=== PATIENT | female | born 1965 | race Caucasian/White ===

== ENCOUNTER 2018-01-16 07:45 | Day surgery (SDC) | payer BC ==
[~2018-01-16] VITALS: Ht 160 cm; Wt 47.6 kg
[~2018-01-16 07:45] MED LIST: MELO-108 PO; MULT-1192 PO; SODIUM CHLORIDE 0.9% 1000ML 1,000 ML IV ONE; TYL3 PO
[2018-01-16 08:59] VITALS: BP 144/73
[2018-01-16 10:40] VITALS: BP 138/56
[2018-01-16 10:48] VITALS: BP 144/61
[2018-01-16 10:53] VITALS: BP 153/71
== END 2018-01-16 11:23 | disposition home or self-care (01) ==
LOC: ENDO 07:45 → DAH 07:45 → ENDO 11:23
PROVIDERS: ATTEND Internal Medicine
DX: K86.1 Other chronic pancreatitis (principal); K80.20 Calculus of gallbladder without cholecystitis without obstruction; K31.89 Other diseases of stomach and duodenum; R59.0 Localized enlarged lymph nodes; K21.9 Gastro-esophageal reflux disease without esophagitis; I10 Essential (primary) hypertension; K59.00 Constipation, unspecified; F10.10 Alcohol abuse, uncomplicated; K85.90 Acute pancreatitis without necrosis or infection, unspecified; K76.0 Fatty (change of) liver, not elsewhere classified; Z79.899 Other long term (current) drug therapy; Z90.49 Acquired absence of other specified parts of digestive tract; Z98.890 Other specified postprocedural states; Z90.89 Acquired absence of other organs
CPT/HCPCS: 43237; A4606; J7030; 43231

== ENCOUNTER 2018-02-03 21:11 | Inpatient (IN) | payer BC ==
[~2018-02-03] VITALS: Ht 162.6 cm; Wt 46.7 kg
[~2018-02-03 21:11] MED LIST changes: -SODIUM CHLORIDE 0.9% 1000ML 1,000 ML IV ONE
[2018-02-03 21:58] LABS: BASOPHILS % (AUTO) 0.8 % (0.0-5.0); EOSINOPHILS % (AUTO) 1.5 % (0.0-8.0); HEMATOCRIT 34.4 % (36-48); LYMPHOCYTES % (AUTO) 21.6 % (21.0-51.0); MEAN CORPUSCULAR HEMOGLOBIN 31.4 pg (27.0-33.0); MEAN CORPUSCULAR HGB CONC 34.1 g/dL (32.0-36.0); MEAN CORPUSCULAR VOLUME 91.9 fL (79-99); MONOCYTES % (AUTO) 6.7 % (3.0-13.0); NEUTROPHILS % (AUTO) 69.4 % (40.0-77.0); PLATELET COUNT (AUTO) 353 K/uL (130-400); RED BLOOD CELL COUNT(AUTO) 3.75 MIL/uL (4.00-5.50); WHITE BLOOD COUNT (AUTO) 12.6 K/uL (4.8-10.8)
[2018-02-03 22:01] LABS: APPEARANCE,URINE CLEAR (CLEAR); BILIRUBIN,URINE MODERATE (NEGATIVE); COLOR,URINE YELLOW (YELLOW); GLUCOSE, URINE (UA) NEGATIVE (NEGATIVE); KETONES,URINE 5 mg/dL (NEGATIVE); LEUKOCYTE ESTERASE ,URINE NEGATIVE (NEGATIVE); NITRATE,URINE NEGATIVE (NEGATIVE); OCCULT BLOOD,URINE MODERATE (NEGATIVE); PROTEIN,URINE >=300 (NEGATIVE)
[2018-02-03 22:05] LABS: AMPHET/METH SCREEN,URINE NEGATIVE (NEGATIVE); BARBITURATE SCREEN, URINE NEGATIVE (NEGATIVE); BENZODIAZEPINES SCREEN,URINE NEGATIVE (NEGATIVE); CANNABINOID SCREEN,URINE NEGATIVE (NEGATIVE); COCAINE SCREEN,URINE NEGATIVE (NEGATIVE); OPIATE SCREEN,URINE NEGATIVE (NEGATIVE); PHENCYCLIDINE SCREEN,URINE NEGATIVE (NEGATIVE)
[2018-02-03 22:10] LABS: CREATININE 0.6 mg/dL (0.5-1.5); POTASSIUM 3.2 mmol/L (3.5-5.1)
[2018-02-03 22:14] LABS: ALBUMIN 3.2 g/dL (3.5-5.0); BILIRUBIN,TOTAL 0.5 mg/dL (0.2-1.0); TOTAL PROTEIN, SERUM 6.5 g/dL (6.0-8.3)
[2018-02-03 22:18] LABS: BACTERIA,URINE Few /HPF (None Seen); MUCUS,URINE Few LPF (None Seen)
[2018-02-03 22:19] LABS: HYALINE CASTS, URINE 0-1 /LPF (0-1 /LPF)
[2018-02-03] MEDS ORDERED: ONDANSETRON HCL 4 MG/2 ML VIAL ONE (22:32)
[2018-02-03] MEDS ORDERED: MORPHINE SULFATE 8 MG/ML VIAL ONE ×2 (22:32→23:56)
[2018-02-04] VITALS (7 sets, daily range): BP systolic 139–167; BP diastolic 75–94
[2018-02-04] MEDS ORDERED: MORPHINE SULFATE 2 MG/ML 1ML SYG IV PRN (00:15)
[2018-02-04] MEDS ORDERED: MORPHINE SULFATE 4 MG/1ML SYG IV PRN (00:15)
[2018-02-04] MEDS ORDERED: LIDOCAINE HCL-MPF 1% 2ML VIAL IVP PRN (00:15)
[2018-02-04] MEDS ORDERED: MAGNESIUM 2GM PREMIX 50ML 50 ML IV PRN (00:15)
[2018-02-04] MEDS ORDERED: ACETAMINOPHEN 325 MG TAB PO PRN (00:15)
[2018-02-04] MEDS ORDERED: ONDANSETRON HCL MDV 20ML 2 MG/ML VIAL IV PRN (00:15)
[2018-02-04] MEDS ORDERED: NICOTINE 21 MG/ 24 HR PATCH TD ONE (01:31)
[2018-02-04] MEDS: LACTATED RINGERS 1000ML 1,000 ML IV SCH (01:57)
[2018-02-04] MEDS: POTASSIUM CHLORIDE 20MEQ/100ML 100 ML IV PRN ×2 (01:59→02:19)
[2018-02-04] MEDS: DiphenhydrAMINE HCL 50 MG/ML VIAL IV SCH ×2 (03:15→19:10)
[2018-02-04] MEDS ORDERED: DiphenhydrAMINE HCL 50 MG/ML VIAL ONE (03:19)
[2018-02-04] MEDS ORDERED: CHLORDIAZEPOXIDE HCL 25 MG CAP PO PRN ×2 (04:30)
[2018-02-04 05:29] LABS: HEMATOCRIT 34.6 % (36-48); MEAN CORPUSCULAR HEMOGLOBIN 30.6 pg (27.0-33.0); MEAN CORPUSCULAR HGB CONC 32.9 g/dL (32.0-36.0); MEAN CORPUSCULAR VOLUME 93.1 fL (79-99); NUCLEATED RED BLOOD CELLS 0.1 % (0.0-0.19); PLATELET COUNT (AUTO) 300 K/uL (130-400); RED BLOOD CELL COUNT(AUTO) 3.72 MIL/uL (4.00-5.50); RED CELL DISTRIBUTION WIDTH 14.2 % (11.0-15.5); WHITE BLOOD COUNT (AUTO) 11.1 K/uL (4.8-10.8)
[2018-02-04 05:47] LABS: ALBUMIN 2.8 g/dL (3.5-5.0); BILIRUBIN,TOTAL 0.4 mg/dL (0.2-1.0); CREATININE 0.5 mg/dL (0.5-1.5); MAGNESIUM 2.1 mg/dL (1.80-2.40); POTASSIUM 3.4 mmol/L (3.5-5.1); TOTAL PROTEIN, SERUM 5.8 g/dL (6.0-8.3)
[2018-02-04] MEDS: FOLIC ACID/VITAMIN B COMP W-C 1 MG CAPSULE PO SCH ×2 (08:42→09:00)
[2018-02-04] MEDS: FAMOTIDINE/PF 20 MG/2 ML VIAL IV SCH ×2 (08:42→20:06)
[2018-02-04] MEDS: ENOXAPARIN SODIUM 30 MG/0.3 ML SQ SCH (08:43)
[2018-02-04] MEDS: NICOTINE 21 MG/ 24 HR PATCH TD SCH (08:44)
[2018-02-04] MEDS ORDERED: MORPHINE SULFATE 5 MG/ML VIAL ONE (08:52)
[2018-02-04] MEDS ORDERED: NICOTINE 21 MG/ 24 HR PATCH TD SCH (09:00)
[2018-02-04] MEDS: LORAZEPAM 2 MG/ML 1 ML VIAL IVP PRN (11:26)
[2018-02-05] MEDS: LORAZEPAM 2 MG/ML 1 ML VIAL IVP PRN ×4 (01:40→20:13)
[2018-02-05 04:00] VITALS: BP 170/89
[2018-02-05 06:10] LABS: BASOPHILS % (AUTO) 0.6 % (0.0-5.0); EOSINOPHILS % (AUTO) 3.4 % (0.0-8.0); HEMATOCRIT 32.6 % (36-48); MEAN CORPUSCULAR HGB CONC 34.5 g/dL (32.0-36.0); MEAN CORPUSCULAR VOLUME 92.9 fL (79-99); MONOCYTES % (AUTO) 7.4 % (3.0-13.0); NEUTROPHILS % (AUTO) 65.6 % (40.0-77.0); PLATELET COUNT (AUTO) 327 K/uL (130-400); RED CELL DISTRIBUTION WIDTH 13.9 % (11.0-15.5)
[2018-02-05 06:23] LABS: ALBUMIN 2.4 g/dL (3.5-5.0); BILIRUBIN,DIRECT 0.1 mg/dL (0.0-0.3); BILIRUBIN,TOTAL 0.4 mg/dL (0.2-1.0); CREATININE 0.6 mg/dL (0.5-1.5); POTASSIUM 3.7 mmol/L (3.5-5.1); TOTAL PROTEIN, SERUM 5.4 g/dL (6.0-8.3)
[2018-02-05 07:51] VITALS: BP 115/55
[2018-02-05] MEDS: FOLIC ACID/VITAMIN B COMP W-C 1 MG CAPSULE PO SCH (08:26)
[2018-02-05] MEDS: FAMOTIDINE/PF 20 MG/2 ML VIAL IV SCH ×2 (08:26→20:12)
[2018-02-05] MEDS: ENOXAPARIN SODIUM 30 MG/0.3 ML SQ SCH (08:27)
[2018-02-05] MEDS: NICOTINE 21 MG/ 24 HR PATCH TD SCH ×2 (08:27→09:00)
[2018-02-05 11:00] VITALS: BP 180/87
[2018-02-05] MEDS: LACTATED RINGERS 1000ML 1,000 ML IV SCH ×2 (11:24→21:59)
[2018-02-05 16:00] VITALS: BP 193/95
[2018-02-05] MEDS ORDERED: OMEP20CA10 PO (16:04)
[2018-02-05] MEDS ORDERED: BISA5TAB12 PO (16:04)
[2018-02-05] MEDS ORDERED: MELA1TAB17 PO (16:04)
[2018-02-05] MEDS ORDERED: 5-HY100C3 PO (16:04)
[2018-02-05] MEDS ORDERED: DOXY25TA49 PO (16:04)
[2018-02-05] MEDS ORDERED: DULO60CA63 PO (16:04)
[2018-02-05] MEDS ORDERED: METOPROLOL TARTRATE 1 MG/ML 5ML VIAL IV PRN (16:15)
[2018-02-05] MEDS: AMLODIPINE BESYLATE 5 MG TAB PO SCH (17:26)
[2018-02-05 19:30] VITALS: BP 171/93
[2018-02-05 23:20] VITALS: BP 175/92
[2018-02-05] MEDS ORDERED: HYDRALAZINE HCL 20 MG/ML VIAL IV PRN (23:30)
[2018-02-06] MEDS: DiphenhydrAMINE HCL 50 MG/ML VIAL IV SCH (03:15)
[2018-02-06 03:40] VITALS: BP 164/94
[2018-02-06] MEDS ORDERED: MORPHINE SULFATE 8 MG/ML VIAL ONE (04:19)
[2018-02-06 04:35] LABS: BASOPHILS % (AUTO) 0.9 % (0.0-5.0); EOSINOPHILS % (AUTO) 4.5 % (0.0-8.0); HEMATOCRIT 36.1 % (36-48); LYMPHOCYTES % (AUTO) 32.5 % (21.0-51.0); MEAN CORPUSCULAR HEMOGLOBIN 31.2 pg (27.0-33.0); MEAN CORPUSCULAR HGB CONC 33.7 g/dL (32.0-36.0); MEAN CORPUSCULAR VOLUME 92.7 fL (79-99); MONOCYTES % (AUTO) 9.9 % (3.0-13.0); NEUTROPHILS % (AUTO) 52.2 % (40.0-77.0); NUCLEATED RED BLOOD CELLS 0.1 % (0.0-0.19); PLATELET COUNT (AUTO) 307 K/uL (130-400); WHITE BLOOD COUNT (AUTO) 8.8 K/uL (4.8-10.8)
[2018-02-06 04:40] LABS: CREATININE 0.6 mg/dL (0.5-1.5); POTASSIUM 3.3 mmol/L (3.5-5.1)
[2018-02-06] MEDS: LACTATED RINGERS 1000ML 1,000 ML IV SCH (06:09)
[2018-02-06 07:58] VITALS: BP 163/81
[2018-02-06] MEDS ORDERED: DULOXETINE HCL 30 MG CAP PO SCH (09:00)
[2018-02-06] MEDS: FOLIC ACID/VITAMIN B COMP W-C 1 MG CAPSULE PO SCH (09:36)
[2018-02-06] MEDS: AMLODIPINE BESYLATE 5 MG TAB PO SCH (09:36)
[2018-02-06] MEDS: FAMOTIDINE/PF 20 MG/2 ML VIAL IV SCH (09:36)
[2018-02-06] MEDS: NICOTINE 21 MG/ 24 HR PATCH TD SCH (09:37)
[2018-02-06] MEDS: ENOXAPARIN SODIUM 30 MG/0.3 ML SQ SCH (09:37)
[2018-02-06 11:00] VITALS: BP 156/88
== END 2018-02-06 14:43 | disposition home or self-care (01) | DRG 439 ==
LOC: EDH 21:11 → EDHIP 23:58 → 4BH 02-04 00:08
PROVIDERS: ADMIT Hospitalist; ATTEND Hospitalist
DX: K85.90 Acute pancreatitis without necrosis or infection, unspecified (principal); E44.1 Mild protein-calorie malnutrition; Z68.1 Body mass index [BMI] 19.9 or less, adult; F17.210 Nicotine dependence, cigarettes, uncomplicated; K86.0 Alcohol-induced chronic pancreatitis; F10.20 Alcohol dependence, uncomplicated; I10 Essential (primary) hypertension; E87.6 Hypokalemia; E83.42 Hypomagnesemia; K80.20 Calculus of gallbladder without cholecystitis without obstruction; Z80.1 Family history of malignant neoplasm of trachea, bronchus and lung; Z80.8 Family history of malignant neoplasm of other organs or systems; Z82.49 Family history of ischemic heart disease and other diseases of the circulatory system; Z83.3 Family history of diabetes mellitus; Z83.6 Family history of other diseases of the respiratory system
CPT/HCPCS: 36415; 76705; 80048; 80053; 80076; 80305; 81001; 82150; 82550; 83690; 83735; 84484; 85025; 85027; 93005; G0480; J0360; J1200; J1650; J2060; J2270; J2405; J3475; J3480; J3490; J7120

== ENCOUNTER 2018-05-16 17:24 | Inpatient (IN) | payer BC | END 2018-05-19 16:18 | disposition home or self-care (01) | LOC: EDH 17:24 → EDHIP 19:44 → 4CH 21:52 | DX: K85.90 Acute pancreatitis without necrosis or infection, unspecified (principal); E44.1 Mild protein-calorie malnutrition; K86.0 Alcohol-induced chronic pancreatitis; F17.210 Nicotine dependence, cigarettes, uncomplicated; F10.20 Alcohol dependence, uncomplicated ==

== ENCOUNTER 2021-08-03 12:23 | Emergency (ER) | payer BC ==
[~2021-08-03] VITALS: Ht 160 cm; Wt 45.4 kg
[~2021-08-03 12:23] MED LIST changes: +FOLI1TAB15 PO; -MELO-108 PO; -MULT-1192 PO
[2021-08-03] MEDS ORDERED: IPRATROPIUM/ALBUTEROL SULFATE 3 ML SOLUTION IH ONE (13:00)
[2021-08-03] MEDS ORDERED: ACETAMINOPHEN WITH CODEINE 1 TAB TAB PO ONE (13:00)
[2021-08-03] MEDS ORDERED: 0.9%NACL 1000ML 1,000 ML IV SCH (13:00)
[2021-08-03 13:10] LABS: BASOPHILS % (AUTO) 0.4 % (0.0-5.0); EOSINOPHILS % (AUTO) 0.4 % (0.0-8.0); HEMATOCRIT 41.1 % (36-48); LYMPHOCYTES % (AUTO) 22.4 % (21.0-51.0); MEAN CORPUSCULAR HEMOGLOBIN 34.4 pg (27.0-33.0); MEAN CORPUSCULAR HGB CONC 35.3 g/dL (32.0-36.0); MEAN CORPUSCULAR VOLUME 97.4 fL (79-99); MONOCYTES % (AUTO) 6.1 % (3.0-13.0); NEUTROPHILS % (AUTO) 70.4 % (40.0-77.0); PLATELET COUNT (AUTO) 281 K/uL (130-400); RED BLOOD CELL COUNT(AUTO) 4.22 MIL/uL (4.00-5.50); RED CELL DISTRIBUTION WIDTH 13.5 % (11.0-15.5); WHITE BLOOD COUNT (AUTO) 6.9 K/uL (4.8-10.8)
[2021-08-03 13:25] LABS: ALBUMIN 3.8 g/dL (3.5-5.0); BILIRUBIN,TOTAL 0.7 mg/dL (0.2-1.0); CREATININE 0.5 mg/dL (0.5-1.5); TOTAL PROTEIN, SERUM 6.8 g/dL (6.0-8.3)
[2021-08-03] MEDS ORDERED: ALBUTEROL 0.083% 2.5 MG/3 ML INH IH ONE (13:30)
[2021-08-03] MEDS ORDERED: AZITHROMYCIN 250 MG TABLET PO ONE (13:30)
[2021-08-03] MEDS ORDERED: NIFEDIPINE 10 MG CAP PO ONE (13:30)
[2021-08-03 13:32] LABS: APPEARANCE,URINE Clear (CLEAR); BILIRUBIN,URINE Negative (NEGATIVE); COLOR,URINE Yellow (YELLOW); GLUCOSE, URINE (UA) Negative (NEGATIVE); KETONES,URINE Trace mg/dL (NEGATIVE); LEUKOCYTE ESTERASE ,URINE Negative (NEGATIVE); NITRATE,URINE Negative (NEGATIVE); OCCULT BLOOD,URINE Small (NEGATIVE); PROTEIN,URINE 300 mg/dL (NEGATIVE); UROBILINOGEN,URINE 0.2 mg/dL (0.2-1.0)
[2021-08-03 13:37] LABS: POTASSIUM 2.4 mmol/L (3.5-5.1)
[2021-08-03] MEDS: DOXYCYCLINE HYCLATE 100 MG TABLET PO SCH ×2 (13:54→14:48)
[2021-08-03] MEDS ORDERED: ALBUTEROL 0.083% 2.5 MG/3 ML INH IH SCH (14:00)
[2021-08-03] MEDS ORDERED: POTASSIUM BICARB/CIT AC 25 MEQ TABLET.EFF PO ONE (14:00)
[2021-08-03 14:06] LABS: BACTERIA,URINE Rare /HPF (None Seen); RBC,URINE 0-1 /HPF (0-1); SQUAMOUS EPITHELIAL CELL,UR Few /HPF (0-2); WBC,URINE 0-1 /HPF (0-1)
[2021-08-03] MEDS ORDERED: MONT10TA21 PO (15:06)
[2021-08-03] MEDS ORDERED: POT1TABL PO (15:06)
[2021-08-03] MEDS ORDERED: DOXY-336 PO (15:06)
[2021-08-03] MEDS ORDERED: IPRA4AER IH (15:06)
[2021-08-03 15:13] VITALS: BP 162/81
[2021-08-03 21:04] LABS: AMPHET/METH SCREEN,URINE NEGATIVE (NEGATIVE); BARBITURATE SCREEN, URINE NEGATIVE (NEGATIVE); BENZODIAZEPINES SCREEN,URINE NEGATIVE (NEGATIVE); CANNABINOID SCREEN,URINE NEGATIVE (NEGATIVE); COCAINE SCREEN,URINE NEGATIVE (NEGATIVE); OPIATE SCREEN,URINE NEGATIVE (NEGATIVE); PHENCYCLIDINE SCREEN,URINE NEGATIVE (NEGATIVE)
== END 2021-08-03 15:15 | disposition home or self-care (01) ==
LOC: EDH 12:23
DX: J45.909 Unspecified asthma, uncomplicated (principal); E87.6 Hypokalemia; E86.0 Dehydration; F17.200 Nicotine dependence, unspecified, uncomplicated; Z20.822 Contact with and (suspected) exposure to COVID-19; I10 Essential (primary) hypertension; I25.10 Atherosclerotic heart disease of native coronary artery without angina pectoris; Z88.0 Allergy status to penicillin; Z79.899 Other long term (current) drug therapy; Z88.8 Allergy status to other drugs, medicaments and biological substances; Z98.890 Other specified postprocedural states
CPT/HCPCS: 36415; 71045; 80053; 80305; 81001; 83690; 83880; 84484; 85025; 87635; 87804 ×2; 93005; 94640 ×3; 99284; C9803; J7030; 96360

== ENCOUNTER 2022-03-21 20:32 | Inpatient (IN) | payer BC ==
[~2022-03-21] VITALS: Ht 160 cm; Wt 44.9 kg
[~2022-03-21 20:32] MED LIST changes: +DOXY-469 PO; +IPRA4AER IH; +MONT10TA21 PO; +POT1TABL PO
[2022-03-21] MEDS ORDERED: ACETAMINOPHEN 500 MG TABLET PO ONE (22:30)
[2022-03-21 23:19] LABS: BASOPHILS % (AUTO) 0.7 % (0.0-5.0); EOSINOPHILS % (AUTO) 0.8 % (0.0-8.0); HEMATOCRIT 40.2 % (36-48); LYMPHOCYTES % (AUTO) 16.6 % (21.0-51.0); MEAN CORPUSCULAR HEMOGLOBIN 33.6 pg (27.0-33.0); MEAN CORPUSCULAR HGB CONC 35.3 g/dL (32.0-36.0); NEUTROPHILS % (AUTO) 76.4 % (40.0-77.0); PLATELET COUNT (AUTO) 372 K/uL (130-400); RED BLOOD CELL COUNT(AUTO) 4.23 MIL/uL (4.00-5.50); RED CELL DISTRIBUTION WIDTH 13.9 % (11.0-15.5); WHITE BLOOD COUNT (AUTO) 12.2 K/uL (4.8-10.8)
[2022-03-21 23:37] LABS: ALBUMIN 3.4 g/dL (3.5-5.0); CREATININE 0.5 mg/dL (0.5-1.5); TOTAL PROTEIN, SERUM 6.5 g/dL (6.0-8.3)
[2022-03-21 23:40] LABS: POTASSIUM 2.6 mmol/L (3.5-5.1)
[2022-03-22] VITALS (12 sets, daily range): BP systolic 170–214; BP diastolic 81–102
[2022-03-22] MEDS ORDERED: POTASSIUM BICARB/CIT AC 25 MEQ TABLET.EFF PO ONE
[2022-03-22] MEDS ORDERED: 0.9% NACL 500ML IV.SOLN 500 ML IV ONE
[2022-03-22] MEDS ORDERED: CHLORDIAZEPOXIDE HCL 25 MG CAP PO PRN ×3 (00:30→20:00)
[2022-03-22] MEDS ORDERED: POTASSIUM CHLORIDE 10% ELIXIR 20 MEQ/15 ML UDCUP PO PRN (00:30)
[2022-03-22] MEDS ORDERED: KCL 20 MEQ ERTAB PO PRN (00:30)
[2022-03-22] MEDS ORDERED: ONDANSETRON 4MG INJ IV PRN (00:30)
[2022-03-22] MEDS ORDERED: ALPRAZOLAM 0.5 MG TABLET PO ONE (00:30)
[2022-03-22] MEDS ORDERED: PHARMACY COMMUNICATION MISC PRN ×3 (00:30→19:30)
[2022-03-22] MEDS ORDERED: LORAZEPAM 2 MG/ML 1 ML VIAL IVP PRN ×2 (00:30→17:00)
[2022-03-22] MEDS ORDERED: LACTULOSE 20 GM/30 ML UDCUP PO PRN (00:30)
[2022-03-22] MEDS ORDERED: ACETAMINOPHEN 325 MG TAB PO PRN ×2 (00:30)
[2022-03-22] MEDS ORDERED: ALPRAZOLAM 0.25 MG TABLET ONE (00:47)
[2022-03-22] MEDS ORDERED: LORAZEPAM 2 MG/ML 1 ML VIAL IVP ONE (01:00)
[2022-03-22] MEDS ORDERED: THIAMINE HCL 100 MG/ML 2ML VIAL ONE (01:44)
[2022-03-22] MEDS ORDERED: M.V.I. IV [ADULT] 10 ML VIAL IV ONE (01:45)
[2022-03-22] MEDS ORDERED: 0.9%NACL 1000ML 1,000 ML IV ONE (01:46)
[2022-03-22] MEDS ORDERED: FOLIC ACID 5 MG/ML VIAL ONE (01:46)
[2022-03-22] MEDS: THIAMINE HCL 100 MG, FOLIC ACID 1 MG, M.V.I. IV [ADULT] 10 ML in 0.9%NACL 1000ML 1,000 ML IV SCH ×2 (01:50→17:44)
[2022-03-22] MEDS: MORPHINE 2 MG SYG IV PRN ×3 (05:17→23:18)
[2022-03-22] MEDS ORDERED: METOPROLOL TARTRATE 1 MG/ML 5ML VIAL IV PRN ×2 (06:30→18:00)
[2022-03-22] MEDS ORDERED: METOPROLOL TARTRATE 1 MG/ML 5ML VIAL IV ONE (07:30)
[2022-03-22] MEDS: FAMOTIDINE 20MG TAB PO SCH ×2 (08:04→20:12)
[2022-03-22 09:40] LABS: CREATININE 0.5 mg/dL (0.5-1.5); MAGNESIUM 1.3 mg/dL (1.80-2.40)
[2022-03-22] MEDS ORDERED: METOPROLOL TARTRATE 25 MG TAB ONE ×2 (11:25→11:31)
[2022-03-22] MEDS: MAGNESIUM 2GM PREMIX 50ML 50 ML IV PRN (13:23)
[2022-03-22] MEDS ORDERED: METOPROLOL TARTRATE 25 MG TAB PO SCH (13:30)
[2022-03-22] MEDS ORDERED: AMLODIPINE 5 MG TAB PO ONE (17:00)
[2022-03-22] MEDS ORDERED: LISINOPRIL 5 MG TABLET PO SCH (18:30)
[2022-03-22] MEDS ORDERED: LISINOPRIL 10 MG TABLET PO ONE (18:30)
[2022-03-22] MEDS: CHLORDIAZEPOXIDE HCL 25 MG CAP PO SCH (20:11)
[2022-03-22] MEDS: METOPROLOL TARTRATE 1 MG/ML 5ML VIAL IV PRN (23:17)
[2022-03-23] VITALS (8 sets, daily range): BP systolic 143–186; BP diastolic 78–98
[2022-03-23] MEDS: LORAZEPAM 2 MG/ML 1 ML VIAL IVP PRN (01:00)
[2022-03-23 05:25] LABS: HEMATOCRIT 47.9 % (36-48); RED BLOOD CELL COUNT(AUTO) 4.94 MIL/uL (4.00-5.50); RED CELL DISTRIBUTION WIDTH 14.2 % (11.0-15.5); WHITE BLOOD COUNT (AUTO) 17.8 K/uL (4.8-10.8)
[2022-03-23 05:53] LABS: CREATININE 0.6 mg/dL (0.5-1.5); MAGNESIUM 1.4 mg/dL (1.80-2.40); POTASSIUM 3.3 mmol/L (3.5-5.1)
[2022-03-23] MEDS: THIAMINE HCL 100 MG, FOLIC ACID 1 MG, M.V.I. IV [ADULT] 10 ML in 0.9%NACL 1000ML 1,000 ML IV SCH (08:41)
[2022-03-23] MEDS: MAGNESIUM 2GM PREMIX 50ML 50 ML IV PRN (08:46)
[2022-03-23] MEDS: METOPROLOL TARTRATE 1 MG/ML 5ML VIAL IV PRN ×2 (09:06→18:47)
[2022-03-23] MEDS: FAMOTIDINE 20MG TAB PO SCH ×2 (11:19→21:36)
[2022-03-23] MEDS: AMLODIPINE 5 MG TAB PO SCH (11:19)
[2022-03-23] MEDS: LISINOPRIL 10 MG TABLET PO SCH (11:19)
[2022-03-23] MEDS: CHLORDIAZEPOXIDE HCL 25 MG CAP PO SCH ×2 (13:20→21:00)
[2022-03-23 18:44] LABS: APPEARANCE,URINE CLEAR (CLEAR); BILIRUBIN,URINE NEGATIVE (NEGATIVE); COLOR,URINE LIGHT-YELLOW (YELLOW); GLUCOSE, URINE (UA) NEGATIVE (NEGATIVE); KETONES,URINE 10 mg/dL (NEGATIVE); LEUKOCYTE ESTERASE ,URINE NEGATIVE Leu/uL (NEGATIVE); NITRATE,URINE NEGATIVE (NEGATIVE); OCCULT BLOOD,URINE NEGATIVE (NEGATIVE); PH,URINE 6.5 (5.0-8.0); PROTEIN,URINE NEGATIVE (NEGATIVE); UROBILINOGEN,URINE 0.2 mg/dL (0.2-1.0)
[2022-03-23 18:46] LABS: MUCUS,URINE RARE LPF (None Seen); RBC,URINE 0-1 /HPF (0-1); SQUAMOUS EPITHELIAL CELL,UR RARE /HPF (0-2); TRANSITIONAL EPI CELLS,URINE RARE /HPF (None Seen)
[2022-03-24] VITALS: BP 182/99
[2022-03-24 04:00] VITALS: BP 160/85
[2022-03-24] MEDS: MORPHINE 2 MG SYG IV PRN (04:23)
[2022-03-24 05:21] LABS: BASOPHILS % (AUTO) 0.4 % (0.0-5.0); HEMATOCRIT 43.1 % (36-48); LYMPHOCYTES % (AUTO) 16.3 % (21.0-51.0); MEAN CORPUSCULAR HGB CONC 34.6 g/dL (32.0-36.0); MEAN CORPUSCULAR VOLUME 95.6 fL (79-99); MONOCYTES % (AUTO) 9.6 % (3.0-13.0); NEUTROPHILS % (AUTO) 72.4 % (40.0-77.0); PLATELET COUNT (AUTO) 394 K/uL (130-400); RED BLOOD CELL COUNT(AUTO) 4.51 MIL/uL (4.00-5.50); RED CELL DISTRIBUTION WIDTH 14.1 % (11.0-15.5); WHITE BLOOD COUNT (AUTO) 11.5 K/uL (4.8-10.8)
[2022-03-24 05:31] LABS: CREATININE 0.5 mg/dL (0.5-1.5); CRP QUANTITATIVE 98.3 mg/L (0.00-9.0)
[2022-03-24] MEDS: POTASSIUM CHLORIDE 10MEQ/100ML 100 ML IV PRN (05:44)
[2022-03-24] MEDS: LIDOCAINE HCL-MPF 1% 2ML VIAL IV PRN (05:50)
[2022-03-24 08:42] VITALS: BP 161/86
[2022-03-24] MEDS: FAMOTIDINE 20MG TAB PO SCH ×2 (10:00→21:55)
[2022-03-24] MEDS: AMLODIPINE 5 MG TAB PO SCH (10:00)
[2022-03-24] MEDS: LISINOPRIL 10 MG TABLET PO SCH (10:01)
[2022-03-24] MEDS: CHLORDIAZEPOXIDE HCL 25 MG CAP PO SCH ×2 (10:35→21:55)
[2022-03-24] MEDS: LORAZEPAM 2 MG/ML 1 ML VIAL IVP PRN (10:46)
[2022-03-24 10:48] VITALS: BP 167/87
[2022-03-24] MEDS ORDERED: DiphenhydrAMINE HCL 50 MG/ML VIAL IV PRN (14:30)
[2022-03-24 16:26] VITALS: BP 159/78
[2022-03-24] MEDS: NICOTINE 14 MG/ 24 HR PATCH TD SCH (17:10)
[2022-03-24 20:00] VITALS: BP 164/81
[2022-03-25] VITALS (9 sets, daily range): BP systolic 144–177; BP diastolic 71–89
[2022-03-25] MEDS: MORPHINE 2 MG SYG IV PRN (02:55)
[2022-03-25] MEDS: METOPROLOL TARTRATE 1 MG/ML 5ML VIAL IV PRN ×3 (05:01→22:31)
[2022-03-25 05:02] LABS: MEAN CORPUSCULAR HEMOGLOBIN 32.7 pg (27.0-33.0); MEAN CORPUSCULAR HGB CONC 34.3 g/dL (32.0-36.0); MEAN CORPUSCULAR VOLUME 95.5 fL (79-99); RED BLOOD CELL COUNT(AUTO) 4.4 MIL/uL (4.00-5.50); RED CELL DISTRIBUTION WIDTH 14.1 % (11.0-15.5); WHITE BLOOD COUNT (AUTO) 8.8 K/uL (4.8-10.8)
[2022-03-25 05:11] LABS: CREATININE 0.6 mg/dL (0.5-1.5); MAGNESIUM 1.1 mg/dL (1.80-2.40)
[2022-03-25 05:13] LABS: INR 0.94 (0.85-1.15); PROTHROMBIN TIME 10.3 SEC (9.6-11.6)
[2022-03-25 05:14] LABS: PARTIAL THROMBOPLASTIN TIME 31.3 SEC (26.3-35.5)
[2022-03-25 05:33] LABS: POTASSIUM 2.9 mmol/L (3.5-5.1)
[2022-03-25] MEDS: POTASSIUM CHLORIDE 10MEQ/100ML 100 ML IV PRN ×3 (05:36→23:31)
[2022-03-25] MEDS: FAMOTIDINE 20MG TAB PO SCH ×3 (08:25→20:18)
[2022-03-25] MEDS: LISINOPRIL 10 MG TABLET PO SCH ×2 (08:26→09:00)
[2022-03-25] MEDS: AMLODIPINE 5 MG TAB PO SCH ×2 (08:27→09:00)
[2022-03-25] MEDS: NICOTINE 14 MG/ 24 HR PATCH TD SCH (08:32)
[2022-03-25] MEDS: CHLORDIAZEPOXIDE HCL 25 MG CAP PO SCH (09:00)
[2022-03-25] MEDS ORDERED: ACETAMINOPHEN 650 MG SUPPOSITORY RC ONE (10:30)
[2022-03-25] MEDS: DOXYCYCLINE 100MG+NS 250ML IV SCH ×2 (10:53→22:22)
[2022-03-25] MEDS: MAGNESIUM 2GM PREMIX 50ML 50 ML IV PRN (16:11)
[2022-03-25] MEDS: LIDOCAINE HCL-MPF 1% 2ML VIAL IV PRN (23:31)
[2022-03-26] MEDS: MORPHINE 2 MG SYG IV PRN (00:56)
[2022-03-26 05:01] LABS: BASOPHILS % (AUTO) 0.6 % (0.0-5.0); EOSINOPHILS % (AUTO) 0.3 % (0.0-8.0); HEMATOCRIT 40.4 % (36-48); LYMPHOCYTES % (AUTO) 24.2 % (21.0-51.0); MEAN CORPUSCULAR HEMOGLOBIN 32.8 pg (27.0-33.0); MEAN CORPUSCULAR HGB CONC 33.4 g/dL (32.0-36.0); MEAN CORPUSCULAR VOLUME 98.1 fL (79-99); MONOCYTES % (AUTO) 19.4 % (3.0-13.0); NEUTROPHILS % (AUTO) 55.2 % (40.0-77.0); PLATELET COUNT (AUTO) 335 K/uL (130-400); RED BLOOD CELL COUNT(AUTO) 4.12 MIL/uL (4.00-5.50); RED CELL DISTRIBUTION WIDTH 14.5 % (11.0-15.5); WHITE BLOOD COUNT (AUTO) 6.2 K/uL (4.8-10.8)
[2022-03-26 05:24] VITALS: BP 127/71
[2022-03-26 05:25] LABS: ALBUMIN 2.5 g/dL (3.5-5.0); CREATININE 0.6 mg/dL (0.5-1.5); MAGNESIUM 1.6 mg/dL (1.80-2.40); POTASSIUM 3.5 mmol/L (3.5-5.1); TOTAL PROTEIN, SERUM 5.9 g/dL (6.0-8.3)
[2022-03-26] MEDS: MAGNESIUM 2GM PREMIX 50ML 50 ML IV PRN (05:45)
[2022-03-26 08:25] VITALS: BP 174/96
[2022-03-26] MEDS: LISINOPRIL 10 MG TABLET PO SCH (08:47)
[2022-03-26] MEDS: FAMOTIDINE 20MG TAB PO SCH ×2 (08:48→21:28)
[2022-03-26] MEDS: AMLODIPINE 5 MG TAB PO SCH (08:48)
[2022-03-26] MEDS: NICOTINE 14 MG/ 24 HR PATCH TD SCH (08:48)
[2022-03-26] MEDS: DOXYCYCLINE 100MG+NS 250ML IV SCH ×2 (11:22→23:04)
[2022-03-26 12:25] VITALS: BP 181/94
[2022-03-26 16:04] VITALS: BP 146/83
[2022-03-26 19:00] VITALS: BP 157/84
[2022-03-27] VITALS (9 sets, daily range): BP systolic 147–202; BP diastolic 79–102
[2022-03-27] MEDS: METOPROLOL TARTRATE 1 MG/ML 5ML VIAL IV PRN (03:42)
[2022-03-27 05:34] LABS: HEMATOCRIT 40.5 % (36-48); MEAN CORPUSCULAR HEMOGLOBIN 32.7 pg (27.0-33.0); MEAN CORPUSCULAR HGB CONC 33.1 g/dL (32.0-36.0); MEAN CORPUSCULAR VOLUME 98.8 fL (79-99); RED BLOOD CELL COUNT(AUTO) 4.1 MIL/uL (4.00-5.50); RED CELL DISTRIBUTION WIDTH 14.4 % (11.0-15.5); WHITE BLOOD COUNT (AUTO) 5.5 K/uL (4.8-10.8)
[2022-03-27 05:42] LABS: CREATININE 0.6 mg/dL (0.5-1.5); POTASSIUM 3.3 mmol/L (3.5-5.1)
[2022-03-27] MEDS: POTASSIUM CHLORIDE 10MEQ/100ML 100 ML IV PRN (06:47)
[2022-03-27] MEDS: LIDOCAINE HCL-MPF 1% 2ML VIAL IV PRN (06:52)
[2022-03-27] MEDS: MAGNESIUM 2GM PREMIX 50ML 50 ML IV PRN (07:11)
[2022-03-27] MEDS: AMLODIPINE 5 MG TAB PO SCH (08:05)
[2022-03-27] MEDS: LISINOPRIL 10 MG TABLET PO SCH (08:05)
[2022-03-27] MEDS: FAMOTIDINE 20MG TAB PO SCH ×2 (08:05→20:26)
[2022-03-27] MEDS: NICOTINE 14 MG/ 24 HR PATCH TD SCH (08:05)
[2022-03-27 09:23] LABS: CRP QUANTITATIVE 41.8 mg/L (0.00-9.0)
[2022-03-27] MEDS: DOXYCYCLINE 100MG+NS 250ML IV SCH ×2 (10:57→22:27)
[2022-03-27] MEDS: M.V.I. IV [ADULT] 10 ML, FOLIC ACID 1 MG, THIAMINE HCL 100 MG in 0.9%NACL 1000ML 1,000 ML IV SCH (14:28)
[2022-03-27] MEDS: TRAZODONE HCL 50 MG TAB PO PRN (20:33)
[2022-03-28 04:38] VITALS: BP 144/79
[2022-03-28 08:00] VITALS: BP 156/87
[2022-03-28] MEDS: FAMOTIDINE 20MG TAB PO SCH ×2 (08:47→20:25)
[2022-03-28] MEDS: LISINOPRIL 10 MG TABLET PO SCH (08:47)
[2022-03-28] MEDS: NICOTINE 14 MG/ 24 HR PATCH TD SCH (08:47)
[2022-03-28] MEDS: AMLODIPINE 5 MG TAB PO SCH (08:47)
[2022-03-28] MEDS: M.V.I. IV [ADULT] 10 ML, FOLIC ACID 1 MG, THIAMINE HCL 100 MG in 0.9%NACL 1000ML 1,000 ML IV SCH (09:00)
[2022-03-28] MEDS ORDERED: 0.9% NACL 250ML 250 ML ONE (10:28)
[2022-03-28] MEDS: DOXYCYCLINE 100MG+NS 250ML IV SCH (10:30)
[2022-03-28 12:00] VITALS: BP 159/92
[2022-03-28 16:00] VITALS: BP 164/92
[2022-03-28 20:31] VITALS: BP 151/75
[2022-03-29] VITALS (7 sets, daily range): BP systolic 127–164; BP diastolic 65–96
[2022-03-29 05:19] LABS: HEMATOCRIT 41.1 % (36-48); MEAN CORPUSCULAR HEMOGLOBIN 33.2 pg (27.0-33.0); MEAN CORPUSCULAR HGB CONC 34.5 g/dL (32.0-36.0); RED BLOOD CELL COUNT(AUTO) 4.28 MIL/uL (4.00-5.50); RED CELL DISTRIBUTION WIDTH 13.7 % (11.0-15.5); WHITE BLOOD COUNT (AUTO) 4.7 K/uL (4.8-10.8)
[2022-03-29 05:30] LABS: ALBUMIN 2.9 g/dL (3.5-5.0); CREATININE 0.5 mg/dL (0.5-1.5); TOTAL PROTEIN, SERUM 6.3 g/dL (6.0-8.3)
[2022-03-29 05:44] LABS: POTASSIUM 2.9 mmol/L (3.5-5.1)
[2022-03-29] MEDS: POTASSIUM CHLORIDE 10MEQ/100ML 100 ML IV PRN (06:34)
[2022-03-29] MEDS: LIDOCAINE HCL-MPF 1% 2ML VIAL IV PRN (07:29)
[2022-03-29] MEDS: AMLODIPINE 5 MG TAB PO SCH (09:24)
[2022-03-29] MEDS: LISINOPRIL 10 MG TABLET PO SCH (09:24)
[2022-03-29] MEDS: NICOTINE 14 MG/ 24 HR PATCH TD SCH (09:24)
[2022-03-29] MEDS: FAMOTIDINE 20MG TAB PO SCH ×2 (09:24→20:39)
[2022-03-29] MEDS: M.V.I. IV [ADULT] 10 ML, FOLIC ACID 1 MG, THIAMINE HCL 100 MG in 0.9%NACL 1000ML 1,000 ML IV SCH (09:56)
[2022-03-29] MEDS ORDERED: HYDRALAZINE 25MG TABLET PO SCH (11:00)
[2022-03-29] MEDS: HYDRALAZINE 25MG TABLET PO SCH (15:51)
[2022-03-29] MEDS: TRAZODONE HCL 50 MG TAB PO PRN (20:39)
[2022-03-30 00:53] VITALS: BP 125/65
[2022-03-30 04:47] VITALS: BP 131/73
[2022-03-30 05:03] LABS: HEMATOCRIT 38.5 % (36-48); MEAN CORPUSCULAR HEMOGLOBIN 32.6 pg (27.0-33.0); MEAN CORPUSCULAR HGB CONC 34.5 g/dL (32.0-36.0); MEAN CORPUSCULAR VOLUME 94.4 fL (79-99); RED BLOOD CELL COUNT(AUTO) 4.08 MIL/uL (4.00-5.50); RED CELL DISTRIBUTION WIDTH 13.9 % (11.0-15.5)
[2022-03-30 05:20] LABS: ALBUMIN 2.6 g/dL (3.5-5.0); CREATININE 0.5 mg/dL (0.5-1.5); TOTAL PROTEIN, SERUM 5.7 g/dL (6.0-8.3)
[2022-03-30 07:40] VITALS: BP 126/68
[2022-03-30] MEDS: FAMOTIDINE 20MG TAB PO SCH (08:27)
[2022-03-30] MEDS: NICOTINE 14 MG/ 24 HR PATCH TD SCH (08:27)
[2022-03-30] MEDS: AMLODIPINE 5 MG TAB PO SCH (08:27)
[2022-03-30] MEDS: HYDRALAZINE 25MG TABLET PO SCH (08:27)
[2022-03-30] MEDS: LISINOPRIL 10 MG TABLET PO SCH (08:28)
[2022-03-30] MEDS: M.V.I. IV [ADULT] 10 ML, FOLIC ACID 1 MG, THIAMINE HCL 100 MG in 0.9%NACL 1000ML 1,000 ML IV SCH (10:41)
[2022-03-30 11:40] VITALS: BP 131/72
[2022-03-30] MEDS: POTASSIUM CHLORIDE 10MEQ/100ML 100 ML IV PRN (12:52)
== END 2022-03-30 16:15 | DRG 562 ==
LOC: EDH 20:32 → EDHIP 03-22 00:23 → 3AH 03-22 04:10 → 3BH 03-23 18:45
PROVIDERS: ADMIT Hospitalist; ATTEND Hospitalist
PROC: 2W3FX1Z Immobilization of Left Hand using Splint (ICD-10-PCS; principal; 2022-03-22)
DX: S52.592A Other fractures of lower end of left radius, initial encounter for closed fracture (principal); G92.8 Other toxic encephalopathy; F10.239 Alcohol dependence with withdrawal, unspecified; E87.1 Hypo-osmolality and hyponatremia; M62.82 Rhabdomyolysis; K86.1 Other chronic pancreatitis; E44.1 Mild protein-calorie malnutrition; Z68.1 Body mass index [BMI] 19.9 or less, adult; S52.615A Nondisplaced fracture of left ulna styloid process, initial encounter for closed fracture; E87.6 Hypokalemia; F17.200 Nicotine dependence, unspecified, uncomplicated; G89.29 Other chronic pain; M54.2 Cervicalgia; D72.829 Elevated white blood cell count, unspecified; E83.42 Hypomagnesemia; F10.229 Alcohol dependence with intoxication, unspecified; E86.0 Dehydration; F17.210 Nicotine dependence, cigarettes, uncomplicated; F41.9 Anxiety disorder, unspecified; I10 Essential (primary) hypertension; R29.6 Repeated falls; Y90.6 Blood alcohol level of 120-199 mg/100 ml; Z91.81 History of falling; Z88.8 Allergy status to other drugs, medicaments and biological substances; Z82.49 Family history of ischemic heart disease and other diseases of the circulatory system; Z83.3 Family history of diabetes mellitus; Z80.8 Family history of malignant neoplasm of other organs or systems; Z80.1 Family history of malignant neoplasm of trachea, bronchus and lung; Z79.899 Other long term (current) drug therapy; W18.39XA Other fall on same level, initial encounter; Y93.89 Activity, other specified; Y92.89 Other specified places as the place of occurrence of the external cause; Y99.8 Other external cause status
CPT/HCPCS: 36415; 70450; 71045; 72125; 73110; 80048; 80053; 81001; 82550; 83690; 83735; 83880; 84145; 84484; 85025; 85027; 85610; 85730; 86140; 87040; 92610; 93005; 97039; G0378; J2060; J2405; J3411; J3475; J3490; J7030; J7040; J7050